=== PATIENT | male | born 1995 | race African-American/Black ===

== ENCOUNTER 2018-09-01 14:45 | Emergency (ER) | payer OTHER, SELFPAY ==
[2018-09-01] MEDS ORDERED: Dexamethasone 10 MG/ML VIAL ONE (14:56)
[2018-09-01] MEDS ORDERED: Bicillin LA 1.2 MILLION UNITS/2 ML SYRINGE ONE (15:04)
== END 2018-09-01 15:27 | disposition home or self-care (01) ==
LOC: SCSER 14:45
DX: J02.0 Streptococcal pharyngitis (principal); I10 Essential (primary) hypertension; F90.9 Attention-deficit hyperactivity disorder, unspecified type
CPT/HCPCS: 87430; 96372; J0561; J1100